=== PATIENT | female | born 1940 | race African-American/Black ===

== ENCOUNTER 2016-09-18 11:43 | Emergency (ER) | payer OTHER, BC ==
[~2016-09-18] VITALS: Ht 162.6 cm; Wt 86.6 kg
[~2016-09-18 11:43] MED LIST: ACID CONTROL20 MG PO; ALPRAZOLAM 0.50.5 M1; ANASPAZ0.125 MG SL; ASPIRIN325 PO; BENTYL 10 MG CA10 M1 PO; BENTYL 20 MG TA20 M1 PO; BENTYL10 MG; CLARITIN10 MG PO; CLONIDINE HCL0.1 M1 PO; COLACE100 MG PO; FUROSEMIDE 20 M20 M1 PO; IBUPROFEN 400400 M1 PO; IRON325 PO; LASIX 40 MG TAB40 M2 PO; LEVAQUIN 500 M500 M2 PO; LISINOPRIL-HCT1 EAC2; LISINOPRIL10 MG PO; MEDROLDOSEPACK PO; MINOCIN100 MG PO; NEXIUM40 MG; NEXIUM40 MG PO; NORCO 5-325 TA1 EACH PO; NORVASC5 MG PO; NYSTATIN 1100000 U/M PO; OMEPRAZOLE 20 M20 M1; ONDANSETRON HCL4 M2 PO; OXYCODONE HCL 55 MG PO; OXYCONTIN10 M1 PO; PERCOCET 5-3251 EACH PO; PHENERGAN 25 MG25 M1 PO; POTASSIUM20 PO; PRINZIDE 20-251 EACH PO; PROTONIX40 M2 PO; TESSALON200 MG; TRAMADOL 50 MG50 MG PO; ULTRAM 50MG TAB50 MG PO; VALIUM2 MG PO; VITAMIN D 5050000 I1 PO; ZPAK PO
[2016-09-18] MEDS ORDERED: CHLORTHALIDONE25 MG PO (12:02)
[2016-09-18 12:12] LABS: ABSOLUTE NEUTROPHILS 6.4 thou/uL (1.4-8.2); BASOPHILS 0.7 % (0.0-2.0); EOSINOPHILS 0.8 % (0.0-3.0); HEMATOCRIT 40.7 % (37.0-47.0); HEMOGLOBIN 13.5 gm/dL (12.0-15.0); LYMPHOCYTES 23.4 % (24.0-44.0); MANUAL DIFF NO; MCH 27.6 pg (26.0-34.0); MCHC 33.2 g/dL (28.0-37.0); MCV 83.2 fL (80.0-100.0); MONOCYTES 10.2 % (1.0-8.0); PLATELET COUNT 331 thou/uL (150-400); POLYS 64.9 % (36.0-66.0); RBC 4.89 mil/uL (4.20-5.00); RDW 16.3 % (10.5-14.5); WBC 9.9 thou/uL (4.0-11.0)
[2016-09-18 12:29] LABS: CALCIUM 9.3 mg/dL (8.5-10.1); POTASSIUM 3.3 mmol/L (3.5-5.1)
[2016-09-18 12:33] LABS: ALBUMIN 3.8 g/dL (3.4-5.0); TOTAL BILIRUBIN 1.4 mg/dL (<0.1-1.0); TOTAL PROTEIN 8.1 g/dL (6.4-8.2)
[2016-09-18 12:37] LABS: URINE BILIRUBIN NEGATIVE (Negative); URINE BLOOD NEGATIVE (Negative); URINE COLOR YELLOW; URINE GLUCOSE-RANDOM* NEGATIVE (Negative); URINE KETONES NEGATIVE (Negative); URINE LEUKOCYTES-REFLEX NEGATIVE (Negative); URINE PROTEIN (DIPSTICK) NEGATIVE (Negative); URINE SPECIFIC GRAVITY 1.015 (1.003-1.035); URINE UROBILINOGEN 0.2 E.U./dl (0.2-1.0)
== END 2016-09-18 15:10 | disposition home or self-care (01) ==
LOC: ER 11:43
PROVIDERS: Emergency Medicine
DX: R10.13 Epigastric pain (principal); I10 Essential (primary) hypertension; M19.90 Unspecified osteoarthritis, unspecified site; Z98.890 Other specified postprocedural states; Z96.653 Presence of artificial knee joint, bilateral; Z91.041 Radiographic dye allergy status; Z88.5 Allergy status to narcotic agent; Z88.2 Allergy status to sulfonamides; Z88.0 Allergy status to penicillin

== ENCOUNTER 2017-02-27 11:33 | Inpatient (IN) | payer OTHER, BC ==
[~2017-02-27] VITALS: Ht 157.5 cm; Wt 92.1 kg
--- NOTE | ~2017-02-27 | HC ---
[facility] [place] [address] CONSULTATION Name: AYANA POLK Room #: 354-P [facility] IN M.R.#: [id number] Admission: 02/27/17 Attend Phys: Belen Vazquez Discharge: Date of : 38 Report #: [id number] THIS REPORT FOR: //name// CC: Belen Lilly MD DATE OF SERVICE: 02/27/2017 ATTENDING PHYSICIAN: Belen Vazquez MD REASON FOR CONSULTATION: Abdominal pain. HISTORY OF PRESENT ILLNESS: This is a 76-year-old -[place] female patient who was seen in [facility] with upper abdominal pain radiating through to her back. She has had difficulty with this pain over several years, intermittently and this has been worked up multiple times. She underwent an EGD one month ago, which showed reflux. The patient was told to take stool softeners for her constipating type irritable bowel syndrome. The stool softeners caused worsened crampy abdominal pain as well as nausea and she has had difficulty with this ever since. Her symptoms have significantly worsened over the past couple of days. She notes nausea and intermittent pain with gas pain and bloating, all worse postprandially. She underwent an ultrasound a couple of months ago to look at her gallbladder and was told she had no gallstones. Through the Emergency Room here at [facility], the patient underwent a CT of the abdomen and pelvis which showed a normal biliary system. There was prominence of a few small bowel loops in the left upper quadrant measuring 2.5 cm in size with the majority of the small bowel at 1-1.5 cm in size. There is no evidence for obstruction. The appendix appeared normal. There were no acute findings. I have been asked to see the patient for further evaluation and treatment. PAST MEDICAL AND SURGICAL HISTORY: Significant for hypertension, right total knee arthroplasty, back surgery, right foot surgery, left total knee arthroplasty, osteoarthritis, irritable bowel syndrome, ovarian cystectomy. MEDICATIONS: Include chlorthalidone 25 mg p.o. b.i.d. ALLERGIES: SULFA DRUGS, ALL CILLINS AND VANCOMYCIN causes red man syndrome. FAMILY HISTORY: Reviewed and noncontributory to this hospitalization. SOCIAL HISTORY: The patient denies use of tobacco, alcohol or illicit drugs. She is accompanied by multiple family members (children and grandchildren). [address] [address] CONSULTATION Name: FELICITASAYANA Room #: 354-P [facility] IN ..#: [id number] Admission: 02/27/17 Attend Phys: Belen Vazquez Discharge: Date of : 38 Report #: [id number] REVIEW OF SYSTEMS: As per history of present illness. In addition: GENERAL: The patient denies unintentional weight loss. Denies fever or chills. HEENT: Denies changes in taste, vision, hearing, or smell. The patient does complain of "white tongue." RESPIRATORY: Denies shortness of breath, COPD or asthma. CARDIOVASCULAR: Denies chest pain or palpitations. GASTROINTESTINAL: As per history of present illness. Denies bright red blood per rectum. Her most recent colonoscopy was approximately 1 year ago and was reportedly normal. GENITOURINARY: Denies dysuria, urgency, increased urinary frequency or hematuria. MUSCULOSKELETAL: Denies myalgia, arthralgia or arthritis. NEUROLOGIC: Denies headaches, numbness or tingling. PSYCHIATRIC: Denies depression, anxiety or suicidal ideations. SKIN AND INTEGUMENTARY: Denies new skin lesions, rashes, or moles. ENDOCRINE: Denies polydipsia, polyuria, heat or cold intolerance. HEMATOLOGIC: Denies easy bleeding, bruising or anemia. All other review of systems is negative. PHYSICAL EXAMINATION: VITAL SIGNS: Temperature 98.1, blood pressure 147/78, pulse 79, respirations 20. GENERAL: This is a well-developed, well-nourished, obese 76-year-old female patient in no acute distress. HEENT: Atraumatic, normocephalic with moist mucosal membranes. Oropharynx is clear. She has no scleral icterus. The patient has a pale appearing tongue consistent with thrush. NECK: Supple, no appreciable lymphadenopathy. Trachea is midline. CHEST: Clear bilaterally. No crackles or wheezes. CARDIOVASCULAR: Regular rate and rhythm, S1, S2. ABDOMEN: Soft, nontender and slightly distended with no rebound or guarding. No palpable masses, no appreciable hernias. Negative Melchor sign. GENITOURINARY: Normal external female genitalia. EXTREMITIES: No clubbing, cyanosis or edema. NEUROLOGIC: Cranial nerves 2-12 grossly intact. PSYCHIATRIC: Normal mood and affect. SKIN AND INTEGUMENTARY: No acute inflammatory changes, rashes or lesions are present. LABORATORY DATA: CBC shows a white blood cell count 10.0, hemoglobin 13.3, hematocrit 40.2 and platelets 323. Electrolytes showed a sodium of 139, potassium 2.7, chloride 100, CO2 of 31, BUN 13, creatinine 1.1, and glucose 102. Liver function tests other than a bilirubin of 1.4 were within normal limits. Lipase was normal. RADIOLOGIC STUDIES: CT of the abdomen and pelvis findings are as noted above. [address] [address] CONSULTATION Name: AYANA POLK Room #: 354-P [facility] IN ..#: [id number] Admission: 02/27/17 Attend Phys: Belen Vazquez Discharge: Date of : 38 Report #: [id number] IMPRESSION AND PLAN: This is a 76-year-old female patient with history of hypertension, osteoarthritis and chronic abdominal pain who also now has thrush. The cause for her abdominal pain is uncertain at this time. However, she may have biliary disease. We discussed the pathophysiology and natural history of biliary disease as well as further evaluation necessary, treatment alternatives and surgical options. The patient would benefit from a PIPIDA scan. She has no evidence for small bowel obstruction at this time. Further recommendations will be made pending results of the study. Her thrush is being treated. I sincerely appreciate the opportunity to participate in the care of this patient and will leave further recommendations and orders in the electronic medical record as appropriate. <ELECTRONICALLY SIGNED> By: Srinath Lilly MD, FACS 02/28/17 0948 [id number] [id number] Srinath Lilly MD, FACS /nt
[~2017-02-27 11:33] MED LIST changes: +CHLORTHALIDONE25 MG PO
[2017-02-27 12:02] VITALS: BP 212/98
[2017-02-27 12:18] LABS: CALCIUM 9.4 mg/dL (8.5-10.1); CREATININE 1.1 mg/dL (0.6-1.0)
[2017-02-27 12:24] LABS: ALBUMIN 3.8 g/dL (3.4-5.0); DIRECT BILIRUBIN 0.2 mg/dL (<0.1-0.3); TOTAL BILIRUBIN 1.4 mg/dL (<0.1-1.0); TOTAL PROTEIN 7.9 g/dL (6.4-8.2)
[2017-02-27 12:27] LABS: POTASSIUM 2.7 mmol/L (3.5-5.1)
[2017-02-27 12:28] LABS: ABSOLUTE NEUTROPHILS 6.5 thou/uL (1.4-8.2); BASOPHILS 0.6 % (0.0-2.0); EOSINOPHILS 0.7 % (0.0-3.0); HEMATOCRIT 40.2 % (37.0-47.0); HEMOGLOBIN 13.3 gm/dL (12.0-15.0); LYMPHOCYTES 23.7 % (24.0-44.0); MANUAL DIFF NO; MCH 27.4 pg (26.0-34.0); MCHC 33.1 g/dL (28.0-37.0); MCV 82.6 fL (80.0-100.0); MONOCYTES 10.1 % (1.0-8.0); PLATELET COUNT 323 thou/uL (150-400); POLYS 64.9 % (36.0-66.0); RBC 4.87 mil/uL (4.20-5.00); RDW 15.5 % (10.5-14.5)
[2017-02-27 14:46] VITALS: BP 147/78
[2017-02-27] MEDS ORDERED: PROTONIX40 M1 PO (15:49)
[2017-02-27] MEDS ORDERED: BENTYL 20 MG TA20 M1 PO (15:49)
[2017-02-27] MEDS ORDERED: NYSTATIN100000 UNI PO (15:51)
[2017-02-27 20:00] VITALS: BP 179/74
[2017-02-28 00:11] VITALS: BP 136/61
[2017-02-28 01:25] LABS: CALCIUM 8.5 mg/dL (8.5-10.1); CREATININE 0.9 mg/dL (0.6-1.0); POTASSIUM 3.3 mmol/L (3.5-5.1)
[2017-02-28 01:31] LABS: ALBUMIN 2.9 g/dL (3.4-5.0); MAGNESIUM 1.9 mg/dL (1.8-2.4); TOTAL BILIRUBIN 1.2 mg/dL (<0.1-1.0); TOTAL PROTEIN 6.1 g/dL (6.4-8.2)
[2017-02-28 04:38] VITALS: BP 119/57
[2017-02-28 07:42] VITALS: BP 144/60
[2017-02-28 11:27] VITALS: BP 149/56
[2017-02-28 15:32] VITALS: BP 147/53
[2017-02-28 19:26] VITALS: BP 143/73
[2017-03-01 04:21] VITALS: BP 128/50
[2017-03-01 09:16] VITALS: BP 138/75
[2017-03-01] MEDS ORDERED: REGLAN 10 MG TA10 MG PO (09:49)
[2017-03-01] MEDS ORDERED: NORVASC10 MG PO (09:49)
[2017-03-01] MEDS ORDERED: NASACORT10.8 ML NASAL (09:50)
[2017-03-01 10:01] VITALS: BP 138/75
== END 2017-03-01 10:40 | disposition home or self-care (01) | DRG 390 ==
LOC: ER 11:33 → EROBS 13:44 → 3W 14:59
PROVIDERS: Emergency Medicine; Hospitalist
DX: K56.0 Paralytic ileus (principal); K56.600 Partial intestinal obstruction, unspecified as to cause; E86.0 Dehydration; E87.6 Hypokalemia; I10 Essential (primary) hypertension; Z96.651 Presence of right artificial knee joint; K58.0 Irritable bowel syndrome with diarrhea; G89.29 Other chronic pain; Z96.652 Presence of left artificial knee joint; M19.90 Unspecified osteoarthritis, unspecified site; Z88.0 Allergy status to penicillin; Z88.2 Allergy status to sulfonamides; Z88.6 Allergy status to analgesic agent; Z91.041 Radiographic dye allergy status; Z79.899 Other long term (current) drug therapy; Z90.6 Acquired absence of other parts of urinary tract
CPT/HCPCS: 10779

== ENCOUNTER 2017-09-05 07:42 | Emergency (ER) | payer OTHER, BC ==
[~2017-09-05] VITALS: Ht 162.6 cm; Wt 88.5 kg
--- NOTE | ~2017-09-05 | EKG ---
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
[~2017-09-05 07:42] MED LIST changes: +NASACORT10.8 ML NASAL; +NORVASC10 MG PO; +NYSTATIN100000 UNI PO; +PROTONIX40 M1 PO; +REGLAN 10 MG TA10 MG PO
[2017-09-05] MEDS ORDERED: BENTYL 10 MG CA10 M1 PO (07:49)
[2017-09-05] MEDS ORDERED: PREDNISONE 5 MG5 M1 PO (07:49)
[2017-09-05] MEDS ORDERED: CHLORTHALIDONE25 MG PO (07:49)
[2017-09-05] MEDS ORDERED: MOBIC15 MG PO (09:03)
[2017-09-05] MEDS ORDERED: TESSALON PERLE100 MG PO (09:03)
== END 2017-09-05 09:19 | disposition home or self-care (01) ==
LOC: ER 07:42
DX: J02.9 Acute pharyngitis, unspecified (principal); I10 Essential (primary) hypertension; K21.9 Gastro-esophageal reflux disease without esophagitis; J45.909 Unspecified asthma, uncomplicated; M19.90 Unspecified osteoarthritis, unspecified site; Z96.652 Presence of left artificial knee joint; Z88.0 Allergy status to penicillin; Z88.2 Allergy status to sulfonamides; Z88.5 Allergy status to narcotic agent

== ENCOUNTER 2017-10-30 13:55 | Inpatient (IN) | payer OTHER, BC ==
[~2017-10-30] VITALS: Ht 162.6 cm; Wt 83.0 kg
--- NOTE | ~2017-10-30 | EKG ---
[place] [address] [facility] [place] [address] ELECTROCARDIOGRAM REPORT Name: FELICITASAYANA CASTILLO Room #: 455-P ADM IN M.R.#: [id number] Admission: 10/30/17 Attend Phys: Jeff Rolon MD Discharge: Date of : 38 Report #: [id number] THIS REPORT FOR: //name// [facility] ED Test Date: 2017-10-30 Test Time: 15:03:38 Pat Name: AYANA POLK Department: Room: [facility] Gender: F [employer]: : 1940 Requested By: Zac Garcia Order Number: [id number] MD: Nikko Elias Measurements Intervals [place] Rate: 93 P: 36 [place]: 178 QRS: 4 QRSD: 99 T: -14 QT: 410 QTc: 511 Interpretive Statements Sinus rhythm Probable left atrial enlargement Nonspecific T wave abnormality Prolonged QT interval Compared to ECG 09/05/2017 08:56:13 Prolonged QT interval now present Electronically Signed On 10-31-2017 10:52:37 CDT by Nikko Elias [email or web address] <ELECTRONICALLY SIGNED> By: Nikko Elias MD, [facility] 10/31/17 1052 1503 1503 Nikko Elias MD, [facility] /EPI
[~2017-10-30 13:55] MED LIST changes: +MOBIC15 MG PO; +PREDNISONE 5 MG5 M1 PO; +TESSALON PERLE100 MG PO
[2017-10-30 14:18] VITALS: BP 187/88
[2017-10-30 14:31] LABS: URINE BILIRUBIN NEGATIVE (Negative); URINE BLOOD TRACE (Negative); URINE CLARITY CLEAR; URINE COLOR YELLOW; URINE GLUCOSE-RANDOM* NEGATIVE (Negative); URINE KETONES NEGATIVE (Negative); URINE LEUKOCYTES-REFLEX NEGATIVE (Negative); URINE NITRITE-REFLEX NEGATIVE (Negative); URINE PROTEIN (DIPSTICK) NEGATIVE (Negative); URINE SPECIFIC GRAVITY <= 1.005 (1.005-1.035); URINE UROBILINOGEN 0.2 E.U./dl (0.2-1.0)
[2017-10-30 15:22] LABS: BASOPHILS 0.8 % (0.0-2.0); EOSINOPHILS 0.3 % (0.0-3.0); HEMOGLOBIN 13.3 gm/dL (12.0-15.0); LYMPHOCYTES 16.3 % (24.0-44.0); MCH 27.3 pg (26.0-34.0); MCHC 33.2 g/dL (28.0-37.0); MCV 82.3 fL (80.0-100.0); MONOCYTES 8.4 % (1.0-8.0); PLATELET COUNT 334 thou/uL (150-400); POLYS 74.2 % (36.0-66.0); RBC 4.86 mil/uL (4.20-5.00); RDW 15.5 % (10.5-14.5); WBC 13.5 thou/uL (4.0-11.0)
[2017-10-30 15:31] LABS: ANION GAP 11 mmol/L (7-16); BUN 11 mg/dL (7-18); CALCIUM 9.5 mg/dL (8.5-10.1); CHLORIDE 101 mmol/L (98-107); CO2 29 mmol/L (21-32); GLUCOSE 96 mg/dL (74-106); SODIUM 141 mmol/L (136-145)
[2017-10-30] MEDS ORDERED: NYSTATIN100000 UNI SW&SWALLOW (15:31)
[2017-10-30] MEDS ORDERED: K-DUR 20 MEQ T20 MEQ PO (15:31)
[2017-10-30 15:34] LABS: POTASSIUM 2.8 mmol/L (3.5-5.1)
[2017-10-30 15:41] LABS: ALBUMIN 3.8 g/dL (3.4-5.0); LIPASE 67 U/L (73-393); SGOT 27 U/L (15-37); SGPT 32 U/L (30-65); TROPONIN-I <0.06 ng/mL (<0.06)
[2017-10-30 18:13] VITALS: BP 195/54
[2017-10-30 18:37] LABS: CALCIUM 9.2 mg/dL (8.5-10.1); MAGNESIUM 1.8 mg/dL (1.8-2.4); POTASSIUM 3.4 mmol/L (3.5-5.1)
[2017-10-30 20:08] VITALS: BP 166/63
[2017-10-31 03:51] VITALS: BP 108/47
[2017-10-31 06:19] LABS: HEMATOCRIT 35.2 % (37.0-47.0); HEMOGLOBIN 11.8 gm/dL (12.0-15.0); MCH 27.7 pg (26.0-34.0); MCHC 33.5 g/dL (28.0-37.0); MCV 82.8 fL (80.0-100.0); RBC 4.25 mil/uL (4.20-5.00); RDW 15.8 % (10.5-14.5); WBC 9.5 thou/uL (4.0-11.0)
[2017-10-31 06:31] LABS: CALCIUM 8.7 mg/dL (8.5-10.1); CREATININE 0.9 mg/dL (0.6-1.0)
[2017-10-31] MEDS ORDERED: CLARITIN10 MG (07:36)
[2017-10-31 08:20] VITALS: BP 129/44
[2017-10-31 16:13] VITALS: BP 116/47
[2017-10-31 19:44] VITALS: BP 132/63
[2017-11-01 04:28] VITALS: BP 124/57
[2017-11-01 08:00] VITALS: BP 122/60
[2017-11-01] MEDS ORDERED: CIPRO500 MG PO (11:58)
[2017-11-01] MEDS ORDERED: NEXIUM40 MG PO (11:59)
[2017-11-01 12:15] VITALS: BP 122/60
== END 2017-11-01 14:47 | disposition home or self-care (01) | DRG 872 ==
LOC: ER 13:55 → EROBS 17:35 → 4W 20:24
PROVIDERS: Emergency Medicine; Hospitalist
DX: A41.9 Sepsis, unspecified organism (principal); K52.9 Noninfective gastroenteritis and colitis, unspecified; I10 Essential (primary) hypertension; Z96.653 Presence of artificial knee joint, bilateral; M19.90 Unspecified osteoarthritis, unspecified site; E87.6 Hypokalemia; K21.9 Gastro-esophageal reflux disease without esophagitis; J45.909 Unspecified asthma, uncomplicated; E66.9 Obesity, unspecified; Z68.31 Body mass index [BMI] 31.0-31.9, adult; Z79.899 Other long term (current) drug therapy; Z88.0 Allergy status to penicillin; Z88.2 Allergy status to sulfonamides; Z88.8 Allergy status to other drugs, medicaments and biological substances; Z91.041 Radiographic dye allergy status
CPT/HCPCS: 10045

== ENCOUNTER 2018-03-16 12:35 | Emergency (ER) | payer OTHER, BC ==
[~2018-03-16] VITALS: Ht 162.6 cm; Wt 82.6 kg
[~2018-03-16 12:35] MED LIST changes: +CIPRO500 MG PO; +CLARITIN10 MG; +K-DUR 20 MEQ T20 MEQ PO; +NYSTATIN100000 UNI SW&SWALLOW
[2018-03-16 13:44] LABS: URINE BLOOD TRACE (Negative); URINE CLARITY CLEAR; URINE COLOR YELLOW; URINE GLUCOSE-RANDOM* NEGATIVE (Negative); URINE KETONES NEGATIVE (Negative); URINE LEUKOCYTES-REFLEX NEGATIVE (Negative); URINE NITRITE-REFLEX NEGATIVE (Negative); URINE PROTEIN (DIPSTICK) NEGATIVE (Negative); URINE UROBILINOGEN 0.2 E.U./dl (0.2-1.0)
[2018-03-16 13:47] LABS: ICTOTEST (BILI CONFIRMATORY) Negative (Negative); URINE BILIRUBIN NEGATIVE (Negative)
[2018-03-16] MEDS ORDERED: VITAMIN D1000 UNI1 PO (14:04)
[2018-03-16] MEDS ORDERED: PROTONIX 20 MG20 M1 PO (14:04)
[2018-03-16 14:06] LABS: ABSOLUTE NEUTROPHILS 9.2 thou/uL (1.4-8.2); BASOPHILS 0.6 % (0.0-2.0); EOSINOPHILS 0.3 % (0.0-3.0); HEMATOCRIT 41.8 % (37.0-47.0); HEMOGLOBIN 13.8 gm/dL (12.0-15.0); LYMPHOCYTES 10.5 % (24.0-44.0); MCH 27.5 pg (26.0-34.0); MCV 83.3 fL (80.0-100.0); MONOCYTES 11.9 % (1.0-8.0); PLATELET COUNT 324 thou/uL (150-400); POLYS 76.7 % (36.0-66.0); RBC 5.03 mil/uL (4.20-5.00); RDW 15.9 % (10.5-14.5)
[2018-03-16 14:15] LABS: CALCIUM 9.9 mg/dL (8.5-10.1); CREATININE 1.1 mg/dL (0.6-1.0); POTASSIUM 3.2 mmol/L (3.5-5.1)
[2018-03-16 14:21] LABS: ALBUMIN 3.7 g/dL (3.4-5.0); TOTAL BILIRUBIN 1.3 mg/dL (<0.1-1.0); TOTAL PROTEIN 7.7 g/dL (6.4-8.2)
[2018-03-16] MEDS ORDERED: LOPERAMIDE 2 MG2 M1 PO (16:27)
[2018-03-16] MEDS ORDERED: CARAFATE 1 GM TA1 G1 PO (16:27)
[2018-03-16 16:39] VITALS: BP 170/62
== END 2018-03-16 16:39 | disposition home or self-care (01) ==
LOC: ER 12:35
PROVIDERS: Physician Assistant
DX: R19.7 Diarrhea, unspecified (principal); R10.84 Generalized abdominal pain; E87.6 Hypokalemia; I10 Essential (primary) hypertension; M19.90 Unspecified osteoarthritis, unspecified site; K21.9 Gastro-esophageal reflux disease without esophagitis; J45.909 Unspecified asthma, uncomplicated; Z91.041 Radiographic dye allergy status; Z96.653 Presence of artificial knee joint, bilateral; Z88.5 Allergy status to narcotic agent; Z88.0 Allergy status to penicillin; Z88.2 Allergy status to sulfonamides

== ENCOUNTER 2019-03-27 13:19 | Emergency (ER) | payer OTHER ==
[~2019-03-27] VITALS: Ht 162.6 cm; Wt 77.1 kg
[~2019-03-27 13:19] MED LIST changes: +CARAFATE 1 GM TA1 G1 PO; +LOPERAMIDE 2 MG2 M1 PO; +PROTONIX 20 MG20 M1 PO; +VITAMIN D1000 UNI1 PO
[2019-03-27 14:34] LABS: URINE BILIRUBIN NEGATIVE (Negative); URINE BLOOD TRACE (Negative); URINE CLARITY CLEAR; URINE COLOR YELLOW; URINE GLUCOSE-RANDOM* NEGATIVE (Negative); URINE KETONES NEGATIVE (Negative); URINE LEUKOCYTES-REFLEX NEGATIVE (Negative); URINE NITRITE-REFLEX NEGATIVE (Negative); URINE PROTEIN (DIPSTICK) NEGATIVE (Negative); URINE UROBILINOGEN 0.2 E.U./dl (0.2-1.0)
[2019-03-27 15:22] LABS: ABSOLUTE NEUTROPHILS 7.1 thou/uL (1.4-8.2); BASOPHILS 0.7 % (0.0-2.0); EOSINOPHILS 0.6 % (0.0-3.0); HEMATOCRIT 39.7 % (37.0-47.0); HEMOGLOBIN 13.1 gm/dL (12.0-15.0); LYMPHOCYTES 19.8 % (24.0-44.0); MCH 27.6 pg (26.0-34.0); MCV 83.5 fL (80.0-100.0); MONOCYTES 9.3 % (1.0-8.0); PLATELET COUNT 334 thou/uL (150-400); POLYS 69.6 % (36.0-66.0); RBC 4.76 mil/uL (4.20-5.00); RDW 15.1 % (10.5-14.5); WBC 10.2 thou/uL (4.0-11.0)
[2019-03-27 15:29] LABS: CALCIUM 10.2 mg/dL (8.5-10.1); POTASSIUM 3.4 mmol/L (3.5-5.1)
[2019-03-27 15:36] LABS: TOTAL BILIRUBIN 1.1 mg/dL (<0.1-1.0)
[2019-03-27] MEDS ORDERED: PROTONIX40 M1 PO (16:53)
[2019-03-27] MEDS ORDERED: CARAFATE 1 GM TA1 G1 PO (16:53)
[2019-03-27 17:09] VITALS: BP 168/78
--- NOTE | 2019-03-31 12:47 | EKG ---
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1940 Requested By: Digna Medrano Order Number: [id number] MD: Raymond Solis Measurements Intervals [place] Rate: 84 P: 44 [place]: 147 QRS: 9 QRSD: 99 T: -15 QT: 452 QTc: 535 Interpretive Statements Sinus rhythm Ventricular premature complex Probable left atrial enlargement Prolonged QT interval Compared to ECG 10/30/2017 15:03:38 Ventricular premature complex(es) now present Electronically Signed On 03-31-2019 12:46:48 [employer] by Raymond Solis [email or web address] <ELECTRONICALLY SIGNED> By: Raymond Solis MD 03/31/19 1246 133 36 Raymond Solis MD /MARY
== END 2019-03-27 17:10 | disposition home or self-care (01) ==
LOC: ER 13:19
PROVIDERS: Physician Assistant
DX: K21.9 Gastro-esophageal reflux disease without esophagitis (principal); K29.70 Gastritis, unspecified, without bleeding; I10 Essential (primary) hypertension; K58.9 Irritable bowel syndrome, unspecified; J45.909 Unspecified asthma, uncomplicated; M19.90 Unspecified osteoarthritis, unspecified site; Z96.653 Presence of artificial knee joint, bilateral; Z91.041 Radiographic dye allergy status; Z88.0 Allergy status to penicillin; Z88.2 Allergy status to sulfonamides; Z88.6 Allergy status to analgesic agent